=== PATIENT | male | born 1965 | race Caucasian/White ===

== ENCOUNTER 2019-08-24 10:39 | Emergency (ER) | payer SELFPAY ==
[2019-08-24 10:45] VITALS: BP 148/83; PULSE 84; RESP 22; TEMP 36.2; O2SAT 98; BMI 26.1
--- NOTE | 2019-08-24 11:39 | ED_ITS ---
HPI - URI/Sore Throat <DELLA Jeter - Last Filed: 08/24/19 11:43> General Chief Complaint: Upper Respiratory Symptoms Stated Complaint: strep throat Time Seen by Provider: 08/24/19 11:06 Source: patient Mode of arrival: Ambulatory Limitations: no limitations History of Present Illness HPI Narrative: The patient is a 53-year-old male former smoker who denies pertinent medical history who presents with a chief complaint of sore throat for the past few days. He is concerned he has strep throat due to the redness and patches on the back of his throat. He denies fevers but complains of generalized malaise. He denies any chest pain, shortness of breath, nausea vomiting diarrhea or abdominal pain. He is concerned as he does not have health insurance, has no prescription coverage and has an allergy to penicillin. Related Data Previous Rx's Medication Instructions Recorded azithromycin See Rx Instructions .ROUTE 08/24/19 .COMPLEX #6 tab clindamycin HCl 300 mg PO QID #40 cap 08/26/19 prednisone See Rx Instructions .ROUTE 08/26/19 .COMPLEX #45 each Allergies Allergy/AdvReac Type Severity Reaction Status Date / Time Penicillins Allergy Severe Anaphylaxis Verified 08/24/19 10:53 Review of Systems <DELLA Jeter - Last Filed: 08/24/19 11:43> Review of Systems Narrative: GENERAL: Denies chills, fatigue, malaise, fever, sweats. HEENT: See HPI RESPIRATORY: Denies dyspnea, cough, wheezing, hemoptysis, sputum. CARDIOVASCULAR: Denies chest pain, palpitations, orthopnea, edema, GASTROINTESTINAL: Denies nausea, vomiting, abdominal pain, diarrhea, constipation, melena. : Denies dysuria, frequency, incontinence, hematuria, urinary retention. MUSCULOSKELETAL: denies weakness, joint pain, or bony pain SKIN: Denies rash, skin lesions, or other NEUROLOGIC: Denies weakness, headache, numbness, change in speech, confusion, seizures, incoordination. PSYCHIATRIC: No concerning psychosocial issues. 12 point review of systems is negative except for those stated above Patient History <DELLA Jeter - Last Filed: 08/24/19 11:43> Social History Smoking Status: Former smoker Smoking Status: Former smoker alcohol intake frequency: other Substance Use Type: marijuana Exam <DELLA Jeter - Last Filed: 08/24/19 11:43> Narrative Exam Narrative: GENERAL: This is a well-nourished, well-developed patient, in no acute distress HEAD: Atraumatic. Normocephalic. No temporal or scalp tenderness. EYES: Pupils equal round and reactive. Extraocular motions intact. No scleral icterus. No injection or drainage. ENT: Nose without bleeding, purulent drainage or septal hematoma. Throat with erythema and bilateral exudate but no tonsillar hypertrophy. Uvula midline. Airway patent. NECK: Trachea midline. No JVD or lymphadenopathy. Supple, nontender, no meni ngeal signs. CARDIOVASCULAR: Regular rate and rhythm RESPIRATORY: Clear to auscultation. Breath sounds equal bilaterally. No wheezes, rales, or rhonchi. No cough. No increased respiratory effort. No accessory muscle use. GASTROINTESTINAL: Abdomen soft, non-tender, nondistended. No hepato- splenomegaly, or palpable masses. No guarding. EXTREMITIES: No clubbing, cyanosis, or edema. No joint tenderness, effusion, or edema noted. BACK: Nontender without deformity or crepitance. No flank tenderness. NEURO: AOx3. SKIN: No rash or erythema on visible skin Initial Vital Signs Initial Vital Signs: Vital Signs Temperature 97.2 F L 08/24/19 10:45 Pulse Rate 84 08/24/19 10:45 Respiratory Rate 22 08/24/19 10:45 Blood Pressure 148/83 H 08/24/19 10:45 Pulse Oximetry 98 08/24/19 10:45 <Christina Blood DO - Last Filed: 08/27/19 07:29> Initial Vital Signs Initial Vital Signs: Vital Signs Temperature 97.2 F L 08/24/19 10:45 Pulse Rate 84 08/24/19 10:45 Respiratory Rate 22 08/24/19 10:45 Blood Pressure 148/83 H 08/24/19 10:45 Pulse Oximetry 98 08/24/19 10:45 Course <SITA Jeter-EILEEN - Last Filed: 08/24/19 11:43> Vital Signs Vital signs: Vital Signs - 8 hr 08/24/19 10:45 Temperature 97.2 F L Pulse Rate 84 Respiratory Rate 22 Blood Pressure 148/83 H Pulse Oximetry 98 <Christina Blood DO - Last Filed: 08/27/19 07:29> Vital Signs Vital signs: Vital Signs - 8 hr 08/24/19 10:45 Temperature 97.2 F L Pulse Rate 84 Respiratory Rate 22 Blood Pressure 148/83 H Pulse Oximetry 98 MDM - URI/Sore Throat <SITA Jeter-BC - Last Filed: 08/24/19 11:43> Lab Data Labs: Point of Care Testing Rapid Strep A Positive MDM Narrative Medical decision making narrative: Patient is a 53-year-old male who presents with a chief complaint of a sore throat. He tested positive for strep given his insurance concerns, financial concerns etcetera combined with penicillin allergy, I given prescription of azithromycin. This is approximately 10 dollars using [facility], I discussed this with him. I discussed at length follow up with primary care provider, given contact information and hospital human resources operations specialist. Encouraged come back to ER for acute concerns. Patient has no questions or concerns upon discharge and states understanding of return precautions as well as follow-up care. <Christina Blood DO - Last Filed: 08/27/19 07:29> Lab Data Labs: Point of Care Testing Rapid Strep A Positive Discharge Plan Departure Patient Disposition: Home Clinical Impression: Strep throat Discharge Date/Time: 08/24/19 11:55 Instructions: DI for Strep Throat Activity Restrictions/Additional Instructions: Today you tested positive for strep throat. Please use [id number] remedies as needed and able. I have sent a prescription of azithromycin to [facility]. Using [facility], this prescription should be approximately $10.50 Please follow-up with primary care provider. I've given you contact information at [facility] human resources operations specialist. Please follow-up especially if worsening or no improvement. Please come back to the emergency department for any acute concerns such as chest pain, shortness of breath, concern of heart attack or stroke. Prescriptions: New azithromycin 250 mg tablet See Rx Instructions .ROUTE .COMPLEX Qty: 6 RF: 0 No Action clindamycin HCl 300 mg capsule 300 mg PO QID Qty: 40 RF: 0 prednisone 10 mg tablets,dose pack See Rx Instructions .ROUTE .COMPLEX Qty: 45 RF: 0 Referrals: [facility] [Outside]
[2019-08-24 11:55] VITALS: PULSE 88; RESP 17; O2SAT 99
== END 2019-08-24 11:55 | disposition home or self-care (01) ==
PROVIDERS: Emergency Provider Nurse Practitioner Family
DX: J02.0 Streptococcal pharyngitis (principal)
CPT/HCPCS: 87880; 99281; 99282

== ENCOUNTER 2019-08-26 11:31 | Emergency (ER) | payer SELFPAY ==
[2019-08-26 11:35] VITALS: BP 129/93; PULSE 99; RESP 15; TEMP 36.9; O2SAT 99; BMI 29.7
--- NOTE | 2019-08-26 11:44 | ED.URI ---
HPI - URI/Sore Throat General Chief Complaint: Upper Respiratory Symptoms Stated Complaint: MEDICINE NOT WORKING THROAT CLOSING UP Time Seen by Provider: 08/26/19 11:39 Source: patient Mode of arrival: Ambulatory Limitations: no limitations History of Present Illness HPI Narrative: This is a 53-year-old male who comes to the emergency department with complaint of sore throat and swelling on the right side. Patient states he was diagnosed with strep throat and has been taking azithromycin. He states the pain has been increasing and he has had increasing swelling on the right side. Patient states that his voice has become more muffled. He has not had fevers. He states that he has difficulty swallowing his secretions or spit. He has been able to breathe but feels a little bit tight in his throat. He has not any passing out. No vomiting. No other shortness of breath in the chest or chest pain. No other GI or urinary symptoms. No rashes or skin changes. Patient denies any other past medical history besides having his gallbladder removed. He states he is allergic to penicillins and has anaphylaxis. He does not think that he can take medications such as amoxicillin or Augmentin. Tobacco occasionally. Related Data Previous Rx's Medication Instructions Recorded azithromycin See Rx Instructions .ROUTE 08/24/19 .COMPLEX #6 tab clindamycin HCl 300 mg PO QID #40 cap 08/26/19 prednisone See Rx Instructions .ROUTE 08/26/19 .COMPLEX #45 each Allergies Allergy/AdvReac Type Severity Reaction Status Date / Time Penicillins Allergy Severe Anaphylaxis Verified 08/24/19 10:53 Review of Systems Review of Systems ROS Unobtainable: All systems reviewed & are unremarkable except as noted in HPI and below Patient History Social History Smoking Status: Former smoker Smoking Status: Former smoker alcohol intake frequency: other Substance Use Type: marijuana Exam Narrative Exam Narrative: GEN: well nourished, well appearing male, alert and oriented x 3, patient appears to be in mild distress. HEENT: Atraumatic, pupils are equal round reactive to light, extraocular movements are intact, nares are clear, TMs are clear with no fluid, there is no conjunctival pallor. Throat is erythematous with right-sided swelling and deviation of the uvula to the left. Patient has muffled voice he is handling most of his secretions but occasionally spits into a bag. Patient has some mild swelling submandibular. No swelling of the tongue. No swelling of the lips or face. HEART: Regular rate and rhythm without murmur, clicks, rubs. LUNGS:Lungs clear to auscultation, no wheezes, rales, crackles, chest moves symmetrically ABD:bowel sounds normal, soft, non-tender, no guarding, rebound, rigidity, no masses noted, no hepatosplenomegaly MSCL: Non-tender, no muscle atrophy, muscles strength 5/5 upper and lower extremities, full range of motion, normal gait NEURO:CN 2-12 intact, sensation normal SKIN: No erythema. No other skin changes. Initial Vital Signs Initial Vital Signs: Vital Signs Temperature 98.5 F 08/26/19 11:35 Pulse Rate 99 H 08/26/19 11:35 Respiratory Rate 15 08/26/19 11:35 Blood Pressure 129/93 H 08/26/19 11:35 Pulse Oximetry 99 08/26/19 11:35 Course Orders Ordered: ED Orders 08/26/19 11:36 Basic Metabolic Panel Stat Complete Blood Count AUTO DIFF Stat Discontinued Medications Sodium Chloride (Normal Saline 0.9%) 1,000 mls @ 1,000 mls/hr IV BOLUS PRN PRN Reason: Fluid replacement Last Infusion: 08/26/19 13:48 Dose: 0 mls/hr Documented by: JOSE ROBERTO Admin: 08/26/19 12:57 Dose: 1,000 mls/hr Documented by: JOSE ROBERTO Sodium Chloride (Normal Saline 0.9%) 1,000 mls @ 1,000 mls/hr IV BOLUS ONE Stop: 08/26/19 12:47 Last Infusion: 08/26/19 12:57 Dose: 0 mls/hr Documented by: JOSE ROBERTO Admin: 08/26/19 12:01 Dose: 1,000 mls/hr Documented by: JOSE ROBERTO Dexamethasone 20 mg/ Sodium (Chloride) 52 mls @ 208 mls/hr IV NOW ONE Stop: 08/26/19 11:49 Last Infusion: 08/26/19 12:19 Dose: 0 mls/hr Documented by: JOSE ROBERTO Admin: 08/26/19 11:59 Dose: 208 mls/hr Documented by: JOSE ROBERTO Clindamycin Phosphate (Cleocin) 900 mg in 50 mls @ 50 mls/hr IV NOW ONE Stop: 08/26/19 12:48 Last Infusion: 08/26/19 13:19 Dose: 0 mls/hr Documented by: JOSE ROBERTO Admin: 08/26/19 12:19 Dose: 50 mls/hr Documented by: JOSE ROBERTO Ketorolac Tromethamine (Toradol) 30 mg IV NOW ONE Stop: 08/26/19 11:49 Last Admin: 08/26/19 12:01 Dose: 30 mg Documented by: JOSE ROBERTO Vital Signs Vital signs: Vital Signs - 8 hr 08/26/19 11:35 08/26/19 12:04 08/26/19 13:04 Temperature 98.5 F Pulse Rate 99 H 84 84 Respiratory Rate 15 19 18 Blood Pressure 129/93 H Blood Pressure [Right Arm] 110/73 119/86 Pulse Oximetry 99 97 99 08/26/19 13:55 Temperature Pulse Rate Respiratory Rate 16 Blood Pressure 126/90 Blood Pressure [Right Arm] Pulse Oximetry MDM - URI/Sore Throat Lab Data Result diagrams: 08/26/19 11:36 08/26/19 11:36 Labs: Lab Results 08/26/19 08/26/19 Range/Units 11:36 11:36 WBC 16.3 H (4.5-11.0) X10^3/uL RBC 5.20 (4.5-5.9) X10^6/uL Hgb 15.1 (13.5-17.5) g/dL Hct 46.0 (41-53) % MCV 88.5 (80-100) fL MCH 29.1 (26-34) PG MCHC 32.8 (30-36) % RDW 14.6 (11.6-14.8) % Plt Count 263 (150-400) X10^3/uL Neut % (Auto) 72.6 (50-75) % Lymph % (Auto) 14.6 L (25-40) % Wetzel % (Auto) 11.8 (3-14) % Eos % (Auto) 0.2 L (2-4) % Baso % (Auto) 0.8 (0-2) % Neut # (Auto) 18140 H (4508-0298) /uL Lymph # (Auto) 2400 (5758-7689) /uL Wetzel # (Auto) 1900 H (0-900) /uL Eos # (Auto) 0 (0-450) /uL Baso # (Auto) 100 (0-100) /uL Sodium 143 (137-145) mmol/L Potassium 3.7 (3.4-5.1) mmol/L Chloride 103 (98-107) mmol/L Carbon Dioxide 27 (22-32) mmol/L BUN 15 (9-20) mg/dL Creatinine 0.90 (0.66-1.25) mg/dL Estimated GFR > 60.0 (>60) mL/min BUN/Creatinine Ratio 16.7 (6-22) Glucose 127 H (70-100) mg/dL Calcium 10.3 H (8.4-10.2) mg/dL MDM Narrative Medical decision making narrative: Patient had positive rapid strep on 08/24/2019 he has been on azithromycin but without improvement. Patient is started develops swelling on the right side which is worsening and he has been having worsening symptoms. Appears to have likely a peritonsillar abscess developing. Plan for IV fluids, Decadron, Toradol as well as changing antibiotics and will reassess. Patient has had significant improvement in department. Per patient his voice is much closer to normal and there is marked improvement on my exam. Discussed plans to change antibiotics and steroids over the next several days. Return precautions discussed and patient feels comfortable with the plan. Discharge Plan Departure Patient Disposition: Home Clinical Impression: Abscess, peritonsillar Discharge Date/Time: 08/26/19 13:55 Instructions: DI for Peritonsillar Abscess -- Adult Activity Restrictions/Additional Instructions: Follow up with primary care in the next 2-3 days for recheck. You may also follow up with ENT if you prefer. Take steroids once daily until gone. Stop azithromycin, start taking new antibiotics today. Your prescription was sent to [facility] in [place]. Make sure you're drinking plenty of fluids. You may continue with ibuprofen and/or Tylenol as needed for pain. You may take ibuprofen up to 800 mg every 8 hours and Tylenol up to a 1000 mg every 8 hours as needed. You may take these together. Return to the ER for recurrent or worsening symptoms, if you are unable to swallow her saliva or secretions, her having increasing swelling of her throat, if you're having increasing hoarseness or muffled voice if you're having tightness of her throat, inability to breathe, lightheadedness or passing out, persistent vomiting or other new or concerning symptoms. Prescriptions: New clindamycin HCl 300 mg capsule 300 mg PO QID Qty: 40 RF: 0 prednisone 10 mg tablets,dose pack See Rx Instructions .ROUTE .COMPLEX Qty: 45 RF: 0 No Action azithromycin 250 mg tablet See Rx Instructions .ROUTE .COMPLEX Qty: 6 RF: 0 Referrals: Arian Bhatia MD [Physician] -
--- NOTE | 2019-08-26 11:48 | PC.NURSE ---
Pt arrived to room with complaints of worsening throat pain on R side. Voice sounds garbled due to increased swelling, no stridor heard. reports that he is taking zpack for strep and is unable to eat or drink and intermittently unable to swallow his own secretions. suspect possible tonsillar abscess. Pt skin intact--no hives or swelling. 18G IV placed in L AC. Dr Bravo aware and in to see.
[2019-08-26 11:55] LABS: Add Manual Diff / Slide Review NO; Basophils Absolute Auto 100 /uL (0-100); Basophils Percent Auto 0.8 % (0-2); Eosinophils Absolute Auto 0 /uL (0-450); Eosinophils Percent Auto 0.2 % (2-4); Hemoglobin 15.1 g/dL (13.5-17.5); Lymphocytes Absolute Auto 2400 /uL (1100-4500); Lymphocytes Percent Auto 14.6 % (25-40); Mean Corpuscular HGB Conc 32.8 % (30-36); Mean Corpuscular Hemoglobin 29.1 PG (26-34); Mean Corpuscular Volume 88.5 fL (80-100); Monocytes Absolute Auto 1900 /uL (0-900); Monocytes Percent Auto 11.8 % (3-14); Neutrophils Absolute Auto 11800 /uL (1500-7000); Neutrophils Percent Auto 72.6 % (50-75); Platelet Count 263 X10^3/uL (150-400); Red Cell Distribution Width 14.6 % (11.6-14.8); White Blood Cell Count 16.3 X10^3/uL (4.5-11.0)
[2019-08-26] MEDS: dexAMETHasone 20 MG in SODIUM CHLORIDE 0.9% 50 ML 208 ML IV (11:59)
[2019-08-26] MEDS: KETOROLAC 60 MG/2 ML VIAL 30 MG IV (12:01)
[2019-08-26] MEDS: SODIUM CHLORIDE 0.9% 1,000 ML 1000 ML IV ×2 (12:01→12:57)
[2019-08-26 12:04] VITALS: BP 110/73; PULSE 84; RESP 19; O2SAT 97
[2019-08-26 12:04] LABS: BUN Creatinine Ratio 16.7 (6-22); Blood Urea Nitrogen 15 mg/dL (9-20); Calcium 10.3 mg/dL (8.4-10.2); Carbon Dioxide 27 mmol/L (22-32); Chloride 103 mmol/L (98-107); Estimated Glomerular Filt Rate > 60.0 mL/min (>60); Glucose 127 mg/dL (70-100); HEMOLYSIS < 15 (0-50); Potassium 3.7 mmol/L (3.4-5.1); Sodium 143 mmol/L (137-145)
[2019-08-26] MEDS: CLINDAMYCIN 900 MG/50 ML PIGGYBACK 50 MG IV (12:19)
[2019-08-26 13:04] VITALS: BP 119/86; PULSE 84; RESP 18; O2SAT 99
[2019-08-26 13:55] VITALS: BP 126/90; RESP 16
== END 2019-08-26 13:55 | disposition home or self-care (01) ==
PROVIDERS: Emergency Provider Emergency Medicine
DX: J36 Peritonsillar abscess (principal); F17.200 Nicotine dependence, unspecified, uncomplicated
CPT/HCPCS: 36415; 80048; 85025; 96365; 96375; 99284; J1100; J1885

== ENCOUNTER 2019-09-05 10:16 | Emergency (ER) | payer SELFPAY ==
[2019-09-05 10:28] VITALS: BP 127/90; PULSE 97; RESP 16; TEMP 37.1; O2SAT 99
[2019-09-05 10:51] LABS: Add Manual Diff / Slide Review NO; Basophils Absolute Auto 100 /uL (0-100); Basophils Percent Auto 0.8 % (0-2); Eosinophils Absolute Auto 200 /uL (0-450); Eosinophils Percent Auto 2.2 % (2-4); Hematocrit 43.2 % (41-53); Hemoglobin 14.5 g/dL (13.5-17.5); Lymphocytes Absolute Auto 1500 /uL (1100-4500); Lymphocytes Percent Auto 19.8 % (25-40); Mean Corpuscular HGB Conc 33.6 % (30-36); Mean Corpuscular Hemoglobin 29.2 PG (26-34); Monocytes Absolute Auto 1100 /uL (0-900); Monocytes Percent Auto 14.3 % (3-14); Neutrophils Absolute Auto 4900 /uL (1500-7000); Neutrophils Percent Auto 62.9 % (50-75); Platelet Count 274 X10^3/uL (150-400); Red Blood Cell Count 4.97 X10^6/uL (4.5-5.9); Red Cell Distribution Width 15.5 % (11.6-14.8); White Blood Cell Count 7.8 X10^3/uL (4.5-11.0)
[2019-09-05] MEDS: ONDANSETRON 4 MG/2 ML INJ IV (10:54)
[2019-09-05] MEDS: SODIUM CHLORIDE 0.9% 1,000 ML 1000 ML IV (10:54)
--- NOTE | 2019-09-05 10:57 | ED_ITS ---
HPI - Nausea/Vomiting/Diarrhea General Chief complaint: Nausea/Vomiting/Diarrhea Stated complaint: possible Salmonella poisoning Time Seen by Provider: 09/05/19 10:20 Source: patient Mode of arrival: Ambulatory Limitations: no limitations History of Present Illness HPI Narrative: patient is a 53-year-old male presenting with vomiting and diarrhea ongoing for last 4 days. He states that his daughter is was diagnosed with Salmonella by a stool sample in the emergency department and he has come to get tested as well. He thinks that they both ate some bad shrimp other rash trunk. He has had at least 4 episodes of diarrhea a day nonbloody. He has vomited 5 times total over the last 4 days doesn't really feel nauseous he has no abdominal cramps. He also was diagnosed with strep on 08/26/2019 and placed on clindamycin and prednisone. He previously had some upper respiratory like symptoms as well but he says those have cleared. MD complaint: diarrhea Description of Diarrhea: watery and mucousy Associated Abdominal Pain: No Related Data Previous Rx's Medication Instructions Recorded clindamycin HCl 300 mg PO QID #40 cap 08/26/19 prednisone See Rx Instructions .ROUTE 08/26/19 .COMPLEX #45 each Allergies Allergy/AdvReac Type Severity Reaction Status Date / Time Penicillins Allergy Severe Anaphylaxis Verified 09/05/19 10:33 Review of Systems Review of Systems Narrative: GENERAL: Denies chills, fatigue, malaise, fever, sweats, travel HEENT: Denies sinus pain, ear pain, sore throat, difficulty swallowing, neck pain RESPIRATORY: Denies dyspnea, cough, wheezing, hemoptysis, sputum. CARDIOVASCULAR: Denies chest pain, palpitations, orthopnea, edema GASTROINTESTINAL: See HPI : Denies dysuria, frequency, incontinence, hematuria, urinary retention, flank pain. MUSCULOSKELETAL: Denies weakness, joint pain, or bony pain SKIN: No rash, no erythema, no pruritus NEUROLOGIC: Denies weakness, dizziness, headache, numbness, change in speech, confusion PSYCHIATRIC: No concerning psychosocial issues. 12 point review of systems is negative except for those stated above and HPI Patient History Medical History Patient denies medical problems (Acute) Social History Smoking Status: Former smoker Smoking Status: Former smoker alcohol intake frequency: 0-2 drinks per day Substance Use Type: marijuana Exam Initial Vital Signs Initial Vital Signs: Vital Signs Temperature 98.7 F 09/05/19 10:28 Pulse Rate 97 H 09/05/19 10:28 Respiratory Rate 16 09/05/19 10:28 Blood Pressure 127/90 09/05/19 10:28 Pulse Oximetry 99 09/05/19 10:28 GENERAL: Well-appearing, well-nourished and in no acute distress. HEENT: Head atraumatic,EOMI, pupils reactive, face symmetric, moist mucous membranes CARDIOVASCULAR: Regular rate and rhythm without murmurs, rubs or gallops. RESPIRATORY: Breath sounds equal bilaterally, no wheezes rales or rhonchi. ABDOMEN: Soft, nontender. Normoactive bowel sounds all 4 quadrants. No guarding or rebound. EXTREMITIES: Normal range of motion, no clubbing or edema. Neurovascularly intact NEUROLOGICAL: Alert and oriented x4.Normal gait and speech. Cranial nerves II through XII grossly intact. SKIN: Warm, dry, no laceration, no petechiae, no rashes or lesions. Course Orders Ordered: ED Orders 09/05/19 10:43 Complete Blood Count AUTO DIFF Stat Comprehensive Metabolic Panel Stat Lipase Stat Partial Thromboplastin Time Stat Prothrombin Time INR Stat 09/05/19 11:07 GI Panel (Film Array) Stat Discontinued Medications Sodium Chloride (Normal Saline 0.9%) 1,000 mls @ 1,000 mls/hr IV BOLUS ONE Stop: 09/05/19 11:33 Last Infusion: 09/05/19 13:29 Dose: 0 mls/hr Documented by: Admin: 09/05/19 10:54 Dose: 1,000 mls/hr Documented by: ANDRIY Ondansetron HCl (Zofran) 4 mg IV NOW ONE Stop: 09/05/19 10:34 Last Admin: 09/05/19 10:54 Dose: 4 mg Documented by: ANDRIY Vital Signs Vital signs: Vital Signs - 8 hr 09/05/19 10:28 09/05/19 11:10 09/05/19 11:30 Temperature 98.7 F Pulse Rate 97 H 83 86 Respiratory Rate 16 17 19 Blood Pressure 127/90 Blood Pressure [Left Arm] 141/92 H 132/88 Pulse Oximetry 99 98 98 01/08/20 12:30 09/05/19 13:20 Temperature Pulse Rate 79 76 Respiratory Rate 16 17 Blood Pressure Blood Pressure [Left Arm] 124/82 124/82 Pulse Oximetry 97 100 MDM - Nausea/Vomiting/Diarrhea Lab Data Attestation: I reviewed the patient's lab results. Result diagrams: 09/05/19 10:43 09/05/19 10:43 Labs: Lab Results 09/05/19 09/05/19 09/05/19 Range/Units 10:43 10:43 10:43 WBC 7.8 (4.5-11.0) X10^3/uL RBC 4.97 (4.5-5.9) X10^6/uL Hgb 14.5 (13.5-17.5) g/dL Hct 43.2 (41-53) % MCV 87.0 (80-100) fL MCH 29.2 (26-34) PG MCHC 33.6 (30-36) % RDW 15.5 H (11.6-14.8) % Plt Count 274 (150-400) X10^3/uL Neut % (Auto) 62.9 (50-75) % Lymph % (Auto) 19.8 L (25-40) % [place] % (Auto) 14.3 H (3-14) % Eos % (Auto) 2.2 (2-4) % Baso % (Auto) 0.8 (0-2) % Neut # (Auto) 4900 (5772-0403) /uL Lymph # (Auto) 1500 (4009-4824) /uL [place] # (Auto) 1100 H (0-900) /uL Eos # (Auto) 200 (0-450) /uL Baso # (Auto) 100 (0-100) /uL PT 12.6 (10.1-12.7) SECONDS INR 1.1 (0.9-1.3) APTT 30 (26.4-36.2) SECONDS Sodium 141 (137-145) mmol/L Potassium 4.2 (3.4-5.1) mmol/L Chloride 105 (98-107) mmol/L Carbon Dioxide 29 (22-32) mmol/L BUN 15 (9-20) mg/dL Creatinine 0.90 (0.66-1.25) mg/dL Estimated GFR > 60.0 (>60) mL/min BUN/Creatinine Ratio 16.7 (6-22) Glucose 100 (70-100) mg/dL Calcium 10.1 (8.4-10.2) mg/dL Total Bilirubin 0.2 (0.2-1.3) mg/dL AST 29 (17-59) IU/L ALT 29 (<50) IU/L Alkaline Phosphatase 57 (38-126) U/L Total Protein 7.3 (6.3-8.2) g/dL Albumin 4.1 (3.5-5.0) g/dL Globulin 3.2 (1.7-4.1) g/dL Albumin/Globulin Ratio 1.3 (1.0-2.8) Lipase 98 (23-300) U/L Stl C. cayetanensis PCR (Not Detect) Stool Rotavirus (PCR) (Not Detect) Stool Adenovirus (PCR) (Not Detect) Stool Astrovirus (PCR) (Not Detect) Stool Cryptosporidium PCR (Not Detect) Stl E.coli Shiga Tox PCR (Not Detect) St Sh/Enteroin Ecoli PCR (Not Detect) Stool E coli O157 PCR Stl Enterotoxigenic E PCR (Not Detect) Stool EPEC (PCR) (Not Detect) Stl E. histolytica PCR (Not Detect) Stool Giardia Lamblia PCR (Not Detect) Stool Sapovirus (PCR) (Not Detect) Stl P. shigelloides PCR (Not Detect) St Y.enterocolitica PCR (Not Detect) Stool Vibrio (PCR) (Not Detect) Stl Vibrio cholerae PCR (Not Detect) Stl Enteroaggr Ecoli PCR (Not Detect) Stl Norovirus GI/GII PCR (Not Detect) Campylobacter (PCR) (Not Detect) C. difficile Tox (PCR) (Not Detect) Salmonella (PCR) (Not Detect) 09/05/19 Range/Units 11:07 WBC (4.5-11.0) X10^3/uL RBC (4.5-5.9) X10^6/uL Hgb (13.5-17.5) g/dL Hct (41-53) % MCV (80-100) fL MCH (26-34) PG MCHC (30-36) % RDW (11.6-14.8) % Plt Count (150-400) X10^3/uL Neut % (Auto) (50-75) % Lymph % (Auto) (25-40) % [place] % (Auto) (3-14) % Eos % (Auto) (2-4) % Baso % (Auto) (0-2) % Neut # (Auto) (9968-3886) /uL Lymph # (Auto) (9962-1029) /uL [place] # (Auto) (0-900) /uL Eos # (Auto) (0-450) /uL Baso # (Auto) (0-100) /uL PT (10.1-12.7) SECONDS INR (0.9-1.3) APTT (26.4-36.2) SECONDS Sodium (137-145) mmol/L Potassium (3.4-5.1) mmol/L Chloride (98-107) mmol/L Carbon Dioxide (22-32) mmol/L BUN (9-20) mg/dL Creatinine (0.66-1.25) mg/dL Estimated GFR (>60) mL/min BUN/Creatinine Ratio (6-22) Glucose (70-100) mg/dL Calcium (8.4-10.2) mg/dL Total Bilirubin (0.2-1.3) mg/dL AST (17-59) IU/L ALT (<50) IU/L Alkaline Phosphatase (38-126) U/L Total Protein (6.3-8.2) g/dL Albumin (3.5-5.0) g/dL Globulin (1.7-4.1) g/dL Albumin/Globulin Ratio (1.0-2.8) Lipase (23-300) U/L Stl C. cayetanensis PCR Not detected (Not Detect) Stool Rotavirus (PCR) Not detected (Not Detect) Stool Adenovirus (PCR) Not detected (Not Detect) Stool Astrovirus (PCR) Not detected (Not Detect) Stool Cryptosporidium PCR Not detected (Not Detect) Stl E.coli Shiga Tox PCR Not detected (Not Detect) St Sh/Enteroin Ecoli PCR Not detected (Not Detect) Stool E coli O157 PCR [employer] Stl Enterotoxigenic E PCR Not detected (Not Detect) Stool EPEC (PCR) Not detected (Not Detect) Stl E. histolytica PCR Not detected (Not Detect) Stool Giardia Lamblia PCR Not detected (Not Detect) Stool Sapovirus (PCR) Not detected (Not Detect) Stl P. shigelloides PCR Not detected (Not Detect) St Y.enterocolitica PCR Not detected (Not Detect) Stool Vibrio (PCR) Not detected (Not Detect) Stl Vibrio cholerae PCR Not detected (Not Detect) Stl Enteroaggr Ecoli PCR Not detected (Not Detect) Stl Norovirus GI/GII PCR Not detected (Not Detect) Campylobacter (PCR) Not detected (Not Detect) C. difficile Tox (PCR) Not detected (Not Detect) Salmonella (PCR) Not detected (Not Detect) Urine Dip Bedside Urine Glucose Negative Bedside Urine Bilirubin - Negative Bedside Urine Ketone - Negative Urine Specific [place] 1.015 Bedside Urine Occult Blood - Negative Bedside Urine pH 7.5 Bedside Urine Protein - Negative Bedside Urine Urobilinogen - Negative Bedside Urine Nitrite - Negative Bedside Urine Leukocytes - Negative Esterase MDM Narrative Medical decision making narrative: Patient actually had a formed or mostly formed stool sample which was green. Test were still run because daughter had salmonella however test were negative. Patient overall appears nontoxic he is tolerating oral fluids. At this time no indication for antibiotic he has no sign of C diff. Discharge Plan Departure Patient Disposition: Home Clinical Impression: Gastroenteritis Discharge Date/Time: 09/05/19 13:36 Instructions: Viral Gastroenteritis Activity Restrictions/Additional Instructions: *You have been diagnosed with gastroenteritis *What to do: No Salmonella or other bacteria identified in your stool. At this time no antibiotics indicated. Recommend increasing fluid intake. *Continue to take medications as directed *Follow up with your primary care provider in 2-3 days *Return to ER if you should have increasing diarrhea loose watery stools, persistent vomiting unable to hold fluids down increased abdominal pain or any new, worsening or concerning symptoms Prescriptions: No Action clindamycin HCl 300 mg capsule 300 mg PO QID Qty: 40 RF: 0 prednisone 10 mg tablets,dose pack See Rx Instructions .ROUTE .COMPLEX Qty: 45 RF: 0 Referrals: [facility] Resources [Outside]
[2019-09-05 10:58] LABS: INR 1.1 (0.9-1.3); Prothrombin Time 12.6 SECONDS (10.1-12.7)
[2019-09-05 11:00] LABS: PTT Partial Thromboplastin Tim 30 SECONDS (26.4-36.2)
[2019-09-05 11:03] LABS: Alanine Aminotransferase 29 IU/L (<50); Albumin 4.1 g/dL (3.5-5.0); Albumin Globulin Ratio 1.3 (1.0-2.8); Alkaline Phosphatase 57 U/L (38-126); Aspartate Aminotransferase 29 IU/L (17-59); BUN Creatinine Ratio 16.7 (6-22); Bilirubin Total 0.2 mg/dL (0.2-1.3); Blood Urea Nitrogen 15 mg/dL (9-20); Calcium 10.1 mg/dL (8.4-10.2); Carbon Dioxide 29 mmol/L (22-32); Chloride 105 mmol/L (98-107); Estimated Glomerular Filt Rate > 60.0 mL/min (>60); Globulin 3.2 g/dL (1.7-4.1); Glucose 100 mg/dL (70-100); HEMOLYSIS 18 (0-50); Lipase 98 U/L (23-300); Potassium 4.2 mmol/L (3.4-5.1); Sodium 141 mmol/L (137-145); Total Protein 7.3 g/dL (6.3-8.2)
[2019-09-05 11:10] VITALS: BP 141/92; PULSE 83; RESP 17; O2SAT 98
[2019-09-05 11:30] VITALS: BP 132/88; PULSE 86; RESP 19; O2SAT 98
[2019-09-05 12:30] VITALS: BP 124/82; PULSE 79; RESP 16; O2SAT 97
[2019-09-05 13:08] LABS: Campylobacter Not Detected (Not Detect); Clostridium difficile toxin AB Not Detected (Not Detect); Plesiomonsa shigelloides Not Detected (Not Detect); Salmonella Not Detected (Not Detect)
[2019-09-05 13:09] LABS: Enteroaggregative E.coli Not Detected (Not Detect); Enteropathogenic E.coli Not Detected (Not Detect); Enterotoxigenic E.coli It/st Not Detected (Not Detect); Shiga-like toxin-prod E.coli Not Detected (Not Detect); Vibrio Not Detected (Not Detect); Vibrio cholerae Not Detected (Not Detect); Yersinia enterocolitica Not Detected (Not Detect)
[2019-09-05 13:10] LABS: Adenovirus F 40/41 Not Detected (Not Detect); Cryptosporidium Not Detected (Not Detect); Cyclospora cayetanensis Not Detected (Not Detect); Entamoeba histolytica Not Detected (Not Detect); Giardia lamblia Not Detected (Not Detect); Shigella/Enteroinvasive E.coli Not Detected (Not Detect)
[2019-09-05 13:11] LABS: Astrovirus Not Detected (Not Detect); Norovirus GI/GII Not Detected (Not Detect); Rotavirus A Not Detected (Not Detect); Sapovirus Not Detected (Not Detect)
[2019-09-05 13:20] VITALS: BP 124/82; PULSE 76; RESP 17; O2SAT 100
== END 2019-09-05 13:36 | disposition home or self-care (01) ==
PROVIDERS: Emergency Provider Emergency Medicine
DX: K52.9 Noninfective gastroenteritis and colitis, unspecified (principal)
CPT/HCPCS: 36415; 80053; 81003; 83690; 85025; 85610; 85730; 87507; 96361; 96374; 99284; J2405